=== PATIENT | male | born 1965 | race Caucasian/White ===

== ENCOUNTER 2017-02-12 09:44 | Inpatient (IN) | payer MEDICARE, MEDICAID ==
[~2017-02-12] VITALS: Ht 177.8 cm; Wt 79.4 kg
[2017-02-12] MEDS ORDERED: IV NS 1000 ML 1,000 ML IV ONE ×2 (10:00→11:30)
[2017-02-12] MEDS ORDERED: PANTOPRAZOLE SODIUM IV 40 MG in IV DEXTROSE 5% 100 ML IV ONE (10:00)
[2017-02-12] MEDS ORDERED: LORAZEPAM 2 MG/1 ML VIAL IV ONE ×2 (10:00→10:30)
[2017-02-12] MEDS ORDERED: ONDANSETRON IV *ER 4 MG/2 ML VIAL IV ONE ×2 (10:00→10:30)
[2017-02-12] MEDS ORDERED: PANTOPRAZOLE SODIUM 40 MG VIAL ONE (10:14)
[2017-02-12] MEDS ORDERED: LORAZEPAM 2 MG/1 ML VIAL ONE ×2 (10:14→10:41)
[2017-02-12] MEDS ORDERED: ONDANSETRON 4 MG/2 ML VIAL ONE ×2 (10:14→10:41)
[2017-02-12 10:16] LABS: BASOPHILS # (AUTO) 0.1 K/uL (0.0-8.0); BASOPHILS % (AUTO) 0.8 % (0.0-2.0); EOSINOPHILS % (AUTO) 0.4 % (0.0-7.0); HEMATOCRIT 47.5 % (40-50); HEMOGLOBIN 16.1 G/DL (14.0-18.0); LYMPHOCYTES # (AUTO) 1.7 K/UL (0.8-4.8); LYMPHOCYTES % (AUTO) 19.6 % (20.5-51.5); MEAN CORPUSCULAR HEMOGLOBIN 31.1 UUG (27.0-31.0); MEAN CORPUSCULAR HGB CONC 34 g/dL (32.0-37.0); MEAN CORPUSCULAR VOLUME 91.5 FL (82.0-92.0); MONOCYTES # (AUTO) 0.4 K/UL (0.1-1.30); NEUTROPHILS # (AUTO) 6.3 K/UL (1.8-8.9); NEUTROPHILS % (AUTO) 74.2 % (38.5-71.5); PLATELET COUNT (AUTO) 263 K/UL (150-450); RED BLOOD CELL COUNT(AUTO) 5.19 MIL/UL (4.7-6.1); WHITE BLOOD COUNT (AUTO) 8.5 K/UL (4.0-11.2)
[2017-02-12 10:26] LABS: POTASSIUM 3.4 mmol/L (3.5-5.1)
[2017-02-12 10:48] LABS: BILIRUBIN,TOTAL 0.7 mg/dL (0.2-1.0); TOTAL PROTEIN, SERUM 7.4 g/dL (6.4-8.2)
--- NOTE | 2017-02-12 11:33 | NUR ---
Pt sleeping in [facility] with no s/s of acute distress noted at this time.
--- NOTE | 2017-02-12 11:50 | NUR ---
Pt to CT, NAD noted.
--- NOTE | 2017-02-12 12:40 | NUR ---
Dr. Dhiraj Rodriguez in to see pt.
--- NOTE | 2017-02-12 12:52 | NUR ---
Pt trans to tele, NAD noted.
--- NOTE | 2017-02-12 13:20 | NUR ---
PATIENT WAS BROUGHT FROM THE ER IN A GURNEY. NO S/S OF DISTRESS NOTED. DENIED PAIN AT THE MOMENT. HE IS ALERT, BUT SEEM SEDATED, UNABLE TO GET ADMISSION INFORMATION DUE TO SEDATION, ATIVAN GIVEN ON ER FOR ANXIETY. WILL MAINTAIN SAFETY AND CONTINUE MONITORING.
[2017-02-12 13:21] VITALS: BP 140/100
[2017-02-12] MEDS ORDERED: ACETAMINOPHEN 325 MG TABLET PO PRN (14:00)
[2017-02-12] MEDS ORDERED: HYDROCODONE/APAP 5-325MG TABLET PO PRN (14:00)
[2017-02-12] MEDS ORDERED: ZOLPIDEM 5 MG TABLET PO PRN (14:00)
[2017-02-12] MEDS ORDERED: FOLIC ACID 1 MG in IV DEXTROSE 5% 50 ML IV SCH (14:00)
[2017-02-12] MEDS ORDERED: ONDANSETRON 4 MG/2 ML VIAL IV PRN (14:00)
[2017-02-12] MEDS ORDERED: THIAMINE HCL INJ 100 MG in IV DEXTROSE 5% 50 ML IV SCH (14:00)
[2017-02-12] MEDS ORDERED: Z GUARD REMEDY PASTE 57 GM TUBE TOP PRN (14:00)
[2017-02-12] MEDS ORDERED: MAGNESIUM HYDROXIDE 30 ML LIQUID UDC PO PRN (14:00)
[2017-02-12] MEDS: IV D5 1/2 NS 1000 ML 1,000 ML IV PRN ×2 (14:40→23:59)
[2017-02-12 16:14] VITALS: BP 124/84
[2017-02-12] MEDS: LORAZEPAM 2 MG/1 ML VIAL IV PRN (18:01)
--- NOTE | 2017-02-12 18:23 | NUR ---
PATIENT WOKE UP DURING DINNER. NO S/S OF DISTRESS NOTED. DENIED PAIN. ACTIVE DIRECTORY ADMINISTRATOR ON PLACED, TACHYCARDIC AND HAND TREMORS NOTED. COMPLAIN OF BEING ANXIOUS. ADMINISTER ATIVAN ORDER. ALL ADMISSIONS WERE CHARTED. PATIENT IS ALERT AND COOPERATIVE. HOMELESS, EXPRESSED TO BE DEPRESSED DUE TO HIS SITUATION, BUT DENIED ANY SUICIDAL IDEATIONS. SAFETY AND COMFORT PROVIDED. WILL CONTINUE MONITORING.
--- NOTE | 2017-02-12 19:30 | NUR ---
NSG: PT SOUNDLY ASLEEP BUT EASILY AROUSABLE. DENIES DISCOMFORT. ON CONT IVF.
[2017-02-12 20:00] VITALS: BP 135/98
[2017-02-13] VITALS: BP 131/93
--- NOTE | 2017-02-13 | NUR ---
NSG: PT COMFORTABLE SLEEPING. AROUSABLE. DENIES DISCOMFORT. NO CHANGE IN CONDITION.
[2017-02-13 04:00] VITALS: BP 118/87
--- NOTE | 2017-02-13 05:47 | NUR ---
NSG: PT DENIES DISCOMFORT. SLEPT ENTIRE NIGHT. ON CONT IVF. TELE, SR-ST HIGH 130'S BUT NON SUSTAIN.
--- NOTE | 2017-02-13 06:05 | NUR ---
NSG: UNABLE TO GIVE PROTONIX PO, MED NOT AVAILABLE FR THE PYXIS. WILL NOTIFY PHARMACY AND ENDORSE TO AM NURSE.
[2017-02-13] MEDS ORDERED: PANTOPRAZOLE SODIUM 40 MG TABLET.DR PO SCH (07:00)
[2017-02-13 07:07] LABS: BASOPHILS % (AUTO) 0.7 % (0.0-2.0); EOSINOPHILS # (AUTO) 0.1 K/uL (0.0-0.7); HEMOGLOBIN 14.4 G/DL (14.0-18.0); LYMPHOCYTES # (AUTO) 1.1 K/UL (0.8-4.8); LYMPHOCYTES % (AUTO) 19.4 % (20.5-51.5); MEAN CORPUSCULAR HEMOGLOBIN 31.2 UUG (27.0-31.0); MEAN CORPUSCULAR HGB CONC 34 g/dL (32.0-37.0); MEAN CORPUSCULAR VOLUME 91.4 FL (82.0-92.0); MONOCYTES # (AUTO) 0.5 K/UL (0.1-1.30); MONOCYTES % (AUTO) 7.7 % (0.0-11.0); NEUTROPHILS # (AUTO) 4.2 K/UL (1.8-8.9); NEUTROPHILS % (AUTO) 70.2 % (38.5-71.5)
[2017-02-13 07:19] LABS: PHOSPHOROUS 2.7 mg/dL (2.5-4.9); POTASSIUM 3.5 mmol/L (3.5-5.1)
[2017-02-13 07:27] LABS: THYROID STIMULATING HORMONE 1.233 mIU/mL (0.358-3.740)
[2017-02-13 07:45] LABS: HEMATOCRIT 42.3 % (40-50); PLATELET COUNT (AUTO) 189 K/UL (150-450); RED BLOOD CELL COUNT(AUTO) 4.62 MIL/UL (4.7-6.1); WHITE BLOOD COUNT (AUTO) 5.9 K/UL (4.0-11.2)
--- NOTE | 2017-02-13 08:15 | NUR ---
RES IN BED, A&OX4. RESP IS EVEN AND UNLABORED. NO SOB. NO DISTRESS. SR ON TELE. IV INFUSING WELL ON R FA. NO C/O PAIN OR DISCOMFORT AT THIS TIME.
[2017-02-13] MEDS: IV D5 1/2 NS 1000 ML 1,000 ML IV PRN (09:59)
[2017-02-13] MEDS: LORAZEPAM 2 MG/1 ML VIAL IV PRN (11:25)
--- NOTE | 2017-02-13 11:45 | NUR ---
PT SEEN AND EXAMINED BY MD LATIF. SEE MD NOTES.
[2017-02-13 12:16] VITALS: BP 125/84
[2017-02-13] MEDS ORDERED: THIAMINE HCL 100 MG TABLET PO SCH (13:00)
[2017-02-13] MEDS ORDERED: FOLIC ACID 1 MG TABLET PO SCH (13:00)
[2017-02-13 14:39] VITALS: BP 118/64
--- NOTE | 2017-02-13 15:25 | NUR ---
PT IS IN STABLE CONDITION, RESP IS EVEN AND UNLABORED. NO SOB. VSS. NO C/O PAIN OR DISCOMFORT AT THIS TIME. PT BEING DISCHARGED TO [facility]. PT PROVIDED BUS TOKENS AND ACCOMPANIED BY STAFF TO OUTSIDE OF FACILITY.
== END 2017-02-13 15:25 | disposition home or self-care (01) | DRG 897 ==
LOC: ER 09:44 → TELE 13:01
DX: F10.230 Alcohol dependence with withdrawal, uncomplicated (principal); M62.82 Rhabdomyolysis; Y90.3 Blood alcohol level of 60-79 mg/100 ml; E87.6 Hypokalemia; F17.210 Nicotine dependence, cigarettes, uncomplicated; F41.9 Anxiety disorder, unspecified
CPT/HCPCS: 36415; 70030-TC; 70450; 83735; 84100; 84443; 85025; 85610; 93005; C9113; G0480; J2060; J2405; J3411; J3490; J7030; J7060